=== PATIENT | female | born 1975 | race African-American/Black ===

== ENCOUNTER 2018-06-06 03:21 | Inpatient (IN) ==
[2018-06-06] MEDS ORDERED: Haloperidol Inj 5 MG/ML Ampul IM ONE ×2 (03:36→08:12)
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
[2018-06-06 04:04] LABS: Baso # (Auto) 0.1 th/mm3 (0.0-0.2); Baso % (Auto) 0.6 % (0.0-2.0); Eos # (Auto) 0.2 th/mm3 (0.0-0.4); Hematocrit 36.1 % (35.0-46.0); Hemoglobin 11.9 gm/dL (11.6-15.3); Lymph # (Auto) 2.5 th/mm3 (1.0-4.8); Lymph % (Auto) 30.3 % (9.0-44.0); Mean Corpuscular HGB Conc 32.9 % (32.0-36.0); Mean Corpuscular Hemoglobin 29.3 pg (27.0-34.0); Mean Corpuscular Volume 88.9 fL (80.0-100.0); Mean Platelet Volume 9.5 fL (7.0-11.0); Mono # (Auto) 0.8 th/mm3 (0.0-0.9); Mono % (Auto) 9.8 % (0.0-8.0); Neut # (Auto) 4.7 th/mm3 (1.8-7.7); Neut % (Auto) 57.3 % (16.0-70.0); Platelet Count 335 th/mm3 (150-450); Red Blood Count 4.06 mil/mm3 (4.00-5.30); Red Cell Distribution Width 14.7 % (11.6-17.2); White Blood Count 8.3 th/mm3 (4.0-11.0)
[2018-06-06 04:27] LABS: Alanine Aminotransferase 16 U/L (10-53); Albumin 3.8 g/dL (3.4-5.0); Anion Gap 11 meq/L (5-15); Aspartate Aminotransferase 19 U/L (15-37); Blood Urea Nitrogen 12 mg/dL (7-18); Calcium 8.3 mg/dL (8.5-10.1); Carbon Dioxide 21.7 meq/L (21.0-32.0); Chloride 110 meq/L (98-107); Glomerular Filtration Rate 63 mL/min (>89); Glucose,Random 117 mg/dL (74-106); Magnesium 1.7 mg/dL (1.5-2.5); Potassium 3.3 meq/L (3.5-5.1); Sodium 143 meq/L (136-145)
[2018-06-06 04:37] LABS: Alkaline Phosphatase 77 U/L (45-117)
[2018-06-06 05:41] LABS: Amphetamine Screen,Urine Neg (Neg); Barbiturate Screen,Urine Neg (Neg); Cannabinoid Screen,Urine Neg (Neg); Cocaine Screen,Urine Neg (Neg)
[2018-06-06 05:44] LABS: Opiate Screen,Urine Neg (Neg)
[2018-06-06] MEDS ORDERED: Bisacodyl 10 MG Supp RECTAL PRN (08:20)
[2018-06-06] MEDS ORDERED: Aluminum/Magnesium/Simethacone Susp 30 ML UDC PO PRN (08:20)
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
--- NOTE | 2018-06-06 12:52 | ECG ---
Date Performed: 06/06/2018 Time Performed: 03:45:09 PTAGE: 89 years EKG: SINUS TACHYCARDIA POSSIBLE LEFT ATRIAL ENLARGEMENT ABNORMAL RHYTHM ECG NO PREVIOUS TRACING DOCTOR: Rian Nelson Interpretating Date/Time 06/06/2018 12:50:19
[2018-06-06] MEDS: Haloperidol 5 MG Tablet PO SCH ×2 (13:15→21:01)
[2018-06-06] MEDS: Senna/Docusate Sodium 8.6/50 MG Tablet PO SCH ×2 (13:15→21:01)
[2018-06-07] MEDS: Senna/Docusate Sodium 8.6/50 MG Tablet PO SCH (08:12)
--- NOTE | 2018-06-07 10:01 | P.PNPSY ---
Subjective Remarks: Patient initially admitted by Dr. Holley's H&P reviewed and agreed with Dr. Holley is done first opinion petition supporting [place] act. I agree. Patient meets criteria for involuntary psychiatric hospitalization under the [place] act. I will cosign second opinion petition supporting [place] act. I also feel the patient does not have capacity to agree to medication or treatment thus I will also initiated healthcare surrogate and guardian advocate. Of interest patient does have a past psychiatric history here under the name "sarah winston with " she was hospitalized here 05/13/18 through 05/27/[address] Suarez. He was discharged after receiving Haldol Decanoate injection of 50 mg. At that time they also discontinued her oral Haldol. Patient seen today in the [place] on 2700 she is quite manic with rapid pressured speech she is intense intrusive and intimidating demanding saying that her weight last name now is only masses that she does not belong here that she does not need medication. That the only medicine she will take his vegetable based medicine. When I attempted to discuss the [place] act and its consequences for her she denied being under any type of [place] act walked away from me and called me and "ass hole" patient refusing to answer any further questions about past psychiatric history family history history of substance use or medical issues.. At this time she does meet Ivey criteria. I will cosign second opinion petition supporting [place] act. I will also do healthcare surrogate Guardian advocate. With the prior admission patient was placed on the [facility] hospital referral list though she appeared to resolve to the point where she was released back to the community. We need to be even more observant with her with this admission Review of Systems All other systems reviewed negative except as stated in HPI Mental Status Examination Appearance: Dirty, Disheveled Consciousness: Alert Orientation: Person Motor Activity: Abnormal gait Speech: Pressured, Rapid Language: Adequate Fund of Knowledge: Poor Attention and Concentration: Easily distracted Memory: Impaired Mood: Angry, Oppositional, Irritable, Manic Affect: Other (Increased range and intensity) Thought Process & Associations: Loose associations, Disorganized Thought Content: Bizarre thinking, Racing thoughts, Depersonalization, Delusional Hallucination Type: None Delusion Type: Bizarre, Paranoid Suicidal Ideation: No Suicidal Plan: No Suicidal Intention: No Homicidal Ideation: No Homicidal Plan: No Homicidal Intention: No Insight: Poor Judgment: Poor Assessment and Plan - Assessment (1) Schizoaffective disorder Code(s): F25.9 - Schizoaffective disorder, unspecified Status: Acute - Plan Plan: At this time patient meets Ivey criteria for involuntary hospitalization. I will cosign second opinion petition supporting Ivey act. Patient does not have capacity to sign for medication or admission or treatment thus I will ask for healthcare surrogate and guardian advocate. With past admission that was necessary to go through [place] to get a guardian advocate hopefully we can get patient into the court docket for this Justification for Continued Inpatient Stay: At this time patient with decompensated placed in a lower level of care Discharge Planning: To be determined there is a possibility that she may be hospital Request Healthcare Surrogate/Guardian Advocate?: Yes (1) Schizoaffective disorder Qualifiers: Schizoaffective disorder type: bipolar Qualified Code(s): F25.0 - Schizoaffective disorder, bipolar type
--- NOTE | 2018-06-08 10:05 | P.PNPSY ---
Subjective Remarks: Patient seen today in follow with nurse Kristy, chart reviewed, patient refusing medications. Though we also do not hear of healthcare surrogate or guardian advocate. Patient remains quite manic with rapid pressured speech she is quite grandiose paranoid. She is quite intrusive. Denying mental illness stating her last name is Onassis. Patient has also been quite hostile and intrusive with nursing and other patients on the unit. Patient had no significant complaints related to medical issues I did attempt again to speak with her related to Ivey act, her schedule hearing for tomorrow, and what it implies. She just walked away and ignored my interaction with her. Patient is scheduled for [place] tomorrow. Consideration of her past hospitalizations and her record I will reinstitute the [facility] referral packet. The counselors we will be contacting the [facility] to see if there is some way we can expedite possible referral to the [facility] Review of Systems All other systems reviewed negative except as stated in HPI Mental Status Examination Appearance: Dirty, Disheveled Consciousness: Alert Orientation: Person, Place Motor Activity: Abnormal gait Speech: Pressured, Rapid Language: Adequate Fund of Knowledge: Poor Attention and Concentration: Easily distracted Memory: Impaired Mood: Angry, Manic Affect: Other (Increased range and intensity) Thought Process & Associations: Loose associations, Disorganized Thought Content: Bizarre thinking, Depersonalization, Delusional Hallucination Type: None Delusion Type: Bizarre, Paranoid Suicidal Ideation: No Suicidal Plan: No Suicidal Intention: No Homicidal Ideation: No Homicidal Plan: No Homicidal Intention: No Insight: Poor Judgment: Poor Assessment and Plan - Plan Plan: Patient remains quite manic and psychotic with rapid pressured speech she is grandiose paranoid vigilant and intrusive patient scheduled for [place] court tomorrow Justification for Continued Inpatient Stay: At this time patient with decompensated placed in a lower level of care Discharge Planning: We will initiate referral to [facility] Request Healthcare Surrogate/Guardian Advocate?: Yes
--- NOTE | 2018-06-08 10:34 | P.TTN ---
- Patient Problems Problems: 1. Discharge planning 2. Medication compliance 3. Knowledge deficit 4. Lack of coping skills - Progress Toward Goals Provider Present: Dr. Leonides Moeller (Dr. Moeller is titrating medications, patient remains for further stabilization.) Psychiatric Counselors Present: Edilberto Duron Jr., [facility] (Counselor attempted to meet with patient to discuss discharge plan. Patient is oppositional and unwilling to maintain conversation or respond appropriately to any questions asked of the patient at this time.) Group Spec/RT/OT/BUSH Present: JOYCE Eason (Patient does not attend groups and is not redirectable at this time.) - Documentation Teaching Recipient: Patient
[2018-06-08] MEDS ORDERED: Haloperidol Inj 5 MG/ML Ampul ONE (21:12)
[2018-06-08] MEDS ORDERED: Haloperidol Inj 5 MG/ML Ampul IM ONE (21:30)
--- NOTE | 2018-06-09 12:03 | P.PNPSY ---
Subjective Remarks: Patient refused to participate in [place] hearing today. Patient's public health informatician agreed to that. Patient was retained by I[place] court charge with guardian advocate appointed. Counselor is also contacting the [facility] to see if we can expedite return to that facility since patient was on a very low number in the waiting list for transfer to that facility. Patient was seen by me on the [address] Patient is seen with nurse Alla. Patient continues quite psychotic intrusive grandiose paranoid denying mental illness denying need for medication or where she was able to process the fact that the court hearing was heard and guardian advocate was appointed. And she will be receiving medication. She did agree to take Geodon orally. With the proviso if she refuses she will have the Geodon IM in its place. Thus we will order Geodon 40 mg p.o. twice daily to be given only with permission of healthcare surrogate/guardian advocate and if she refuses to have it replaced with Geodon 10 mg IM. We will hope we can expedite a referral to [facility] Review of Systems All other systems reviewed negative except as stated in HPI Mental Status Examination Appearance: Dirty, Disheveled Consciousness: Alert Orientation: Person, Place Motor Activity: Abnormal gait Speech: Pressured, Rapid Language: Adequate Fund of Knowledge: Poor Attention and Concentration: Easily distracted Memory: Impaired Mood: Angry, Manic Affect: Other (Increased range and intensity) Thought Process & Associations: Loose associations, Disorganized Thought Content: Bizarre thinking, Depersonalization, Delusional Hallucination Type: None Delusion Type: Bizarre, Paranoid Suicidal Ideation: No Suicidal Plan: No Suicidal Intention: No Homicidal Ideation: No Homicidal Plan: No Homicidal Intention: No Insight: Poor Judgment: Poor Assessment and Plan - Assessment (1) Schizoaffective disorder Code(s): F25.9 - Schizoaffective disorder, unspecified Status: Acute - Plan Plan: Patient retained by [place] court charge with guardian advocate appointed we will start medication as mentioned above with permission of guardian advocate. State referral packet has been sent. We are attempting to expedite that process also Justification for Continued Inpatient Stay: At this time patient with decompensated placed in a lower level of care Discharge Planning: Referred to [facility] Request Healthcare Surrogate/Guardian Advocate?: Yes (1) Schizoaffective disorder Qualifiers: Schizoaffective disorder type: bipolar Qualified Code(s): F25.0 - Schizoaffective disorder, bipolar type
--- NOTE | 2018-06-10 09:11 | P.PNPSY ---
Subjective Remarks: Patient seen and [place] with floor staff, patient continues intense labile singing and dancing around the [place] patient continues to manipulate the medication saying that she has to open wound of the Geodon capsule to inspected before she will take it orally, she also stated that she would rather be on Haldol. I declined to make any changes in the medication at this time. Patient then stated she would have to take her shots. I will allow that. However I will increase the oral Geodon to 60 mg p.o. twice daily and increase the IM Geodon to 20 mg IM if patient refuses the oral scheduled dose. We will continue to work with expediting referral to the [facility] Review of Systems All other systems reviewed negative except as stated in HPI Mental Status Examination Appearance: Disheveled Consciousness: Alert Orientation: Person, Place, Situation Motor Activity: Normal gait Speech: Pressured, Rapid Language: Adequate Fund of Knowledge: Poor Attention and Concentration: Easily distracted Memory: Impaired Mood: Angry, Irritable, Manic Affect: Other (Increased range and intensity) Thought Process & Associations: Loose associations, Disorganized Thought Content: Bizarre thinking, Depersonalization, Delusional Hallucination Type: None Delusion Type: Bizarre, Paranoid Suicidal Ideation: No Suicidal Plan: No Suicidal Intention: No Homicidal Ideation: No Homicidal Plan: No Homicidal Intention: No Insight: Poor Judgment: Poor Assessment and Plan - Assessment (1) Schizoaffective disorder Code(s): F25.9 - Schizoaffective disorder, unspecified Status: Acute - Plan Plan: Patient continues quite psychotic delusional and manic, showing noncompliance with medication, leading to nursing needing to use the alternative dosing of the Geodon, IM dose replacing p.o. dose Justification for Continued Inpatient Stay: At this time patient with decompensated placed on lower level of care Discharge Planning: Continue to work with expedited transfer to the [facility] Request Healthcare Surrogate/Guardian Advocate?: Yes (1) Schizoaffective disorder Qualifiers: Schizoaffective disorder type: bipolar Qualified Code(s): F25.0 - Schizoaffective disorder, bipolar type
[2018-06-12] MEDS: Haloperidol 5 MG Tablet PO SCH ×2 (08:11→21:00)
--- NOTE | 2018-06-12 12:35 | P.PNPSY ---
Subjective Remarks: Reviewed electronic medical record and discussed with nursing staff. Rounded with MAGUE Granda. Patient in her bed with the covers over her head. She denies any depression or sadness. She is very paranoid and internally stimulated. Loose associations and tangential. She inspects her medications and needs alot of encouragement to take her medications. She is rambling about leaving and moving back with her "real ." Staff endorse that she makes comments that she " hates black people" and she is . She easily escalates if you call her name out incorrectly. Denies SI/HI. Review of Systems All other systems reviewed negative except as stated in HPI Mental Status Examination Appearance: Disheveled Consciousness: Alert Orientation: Person, Place, Situation Motor Activity: Normal gait Speech: Pressured, Rapid Language: Adequate Fund of Knowledge: Poor Attention and Concentration: Easily distracted Memory: Impaired Mood: Angry, Irritable, Manic Affect: Other (Increased range and intensity) Thought Process & Associations: Loose associations, Disorganized Thought Content: Bizarre thinking, Depersonalization, Delusional Hallucination Type: None Delusion Type: Bizarre, Paranoid Suicidal Ideation: No Suicidal Plan: No Suicidal Intention: No Homicidal Ideation: No Homicidal Plan: No Homicidal Intention: No Insight: Poor Judgment: Poor Assessment and Plan - Assessment (1) Acute psychosis Code(s): F23 - Brief psychotic disorder Status: Acute (2) Schizoaffective disorder Code(s): F25.9 - Schizoaffective disorder, unspecified Status: Acute - Plan Plan: 06/12/18 Patient continues quite psychotic delusional and manic. Needs alot of encouragement to take her medications, IM dose available if needed. Justification for Continued Inpatient Stay: Moving patient to a less restrictive environment may result in her decompensation. Request Healthcare Surrogate/Guardian Advocate?: Yes (2) Schizoaffective disorder Qualifiers: Schizoaffective disorder type: bipolar Qualified Code(s): F25.0 - Schizoaffective disorder, bipolar type
[2018-06-13] MEDS: Haloperidol 5 MG Tablet PO SCH ×2 (09:03→20:42)
--- NOTE | 2018-06-13 09:13 | P.PNPSY ---
Subjective Remarks: Patient is seen today in day room with floor staff, chart reviewed, patient compliant medication. Patient continues intrusive superficial silly somewhat childlike with no insight into her disease. Continues to deny illness though is compliant with medication. We will increase Geodon to 80 mg twice daily orally continue to work with [facility] for expedited return to that facility Review of Systems All other systems reviewed negative except as stated in HPI Mental Status Examination Appearance: Disheveled Consciousness: Alert Orientation: Person, Place, Situation Motor Activity: Normal gait Speech: Pressured, Rapid Language: Adequate Fund of Knowledge: Poor Attention and Concentration: Easily distracted Memory: Impaired Mood: Angry, Irritable, Manic Affect: Other (Increased range and intensity) Thought Process & Associations: Loose associations, Disorganized Thought Content: Bizarre thinking, Depersonalization, Delusional Hallucination Type: None Delusion Type: Bizarre, Paranoid Suicidal Ideation: No Suicidal Plan: No Suicidal Intention: No Homicidal Ideation: No Homicidal Plan: No Homicidal Intention: No Insight: Poor Judgment: Poor Assessment and Plan - Assessment (1) Schizoaffective disorder Code(s): F25.9 - Schizoaffective disorder, unspecified Status: Acute - Plan Plan: Patient remains quite psychotic paranoid and delusional. No insight into her disease. See medication adjustment above Justification for Continued Inpatient Stay: At this time patient with decompensated placed in a lower level of care Discharge Planning: Continue to work with [facility] for expedited admission to this facility Request Healthcare Surrogate/Guardian Advocate?: Yes (1) Schizoaffective disorder Qualifiers: Schizoaffective disorder type: bipolar Qualified Code(s): F25.0 - Schizoaffective disorder, bipolar type
[2018-06-14] MEDS: Haloperidol 5 MG Tablet PO SCH (08:35)
[2018-06-14] MEDS ORDERED: Haloperidol Decanoate Inj 50 MG/ML Ampul IM ONE ×2 (09:54→12:00)
--- NOTE | 2018-06-14 09:59 | P.PNPSY ---
Subjective Remarks: Patient seen in the [place] with nurse Kristy, chart reviewed, patient trying mixed complaints medication, compliant with the Haldol but assuring marked delusional ideation related to the capsules of Geodon. Patient feels the capsule itself was poisoned. She continues intense superficial silly somewhat elevated and intrusive. Discussing this with the staff staff states that patient is done well in the past only on Haldol and Haldol decanoate without the need for Geodon. We will wean patient off Geodon increase Depakote to 10 mg twice daily and add Haldol decanoate Review of Systems All other systems reviewed negative except as stated in HPI Mental Status Examination Appearance: Appropriate Consciousness: Alert Orientation: Person, Place, Situation Motor Activity: Normal gait Speech: Pressured, Rapid Language: Adequate Fund of Knowledge: Poor Attention and Concentration: Easily distracted Memory: Impaired Mood: Angry, Irritable, Manic Affect: Other (Increased range and intensity) Thought Process & Associations: Loose associations, Disorganized Thought Content: Bizarre thinking, Depersonalization, Delusional Hallucination Type: None Delusion Type: Bizarre, Paranoid Suicidal Ideation: No Suicidal Plan: No Suicidal Intention: No Homicidal Ideation: No Homicidal Plan: No Homicidal Intention: No Insight: Poor Judgment: Poor Assessment and Plan - Assessment (1) Schizoaffective disorder Code(s): F25.9 - Schizoaffective disorder, unspecified Status: Acute - Plan Plan: Patient continues psychotic and delusional, though showing some increased compliance overall with medication see medication adjustments above Justification for Continued Inpatient Stay: At this time patient with decompensated placed on a lower level of care Discharge Planning: To be determined Request Healthcare Surrogate/Guardian Advocate?: Yes (1) Schizoaffective disorder Qualifiers: Schizoaffective disorder type: bipolar Qualified Code(s): F25.0 - Schizoaffective disorder, bipolar type
--- NOTE | 2018-06-15 12:39 | P.PNPSY ---
Subjective Remarks: Patient seen and [place] with nurse Kristy, chart reviewed, patient compliant medication. Patient did accept the Haldol Decanoate injection yesterday without difficulty. Patient continues superficial silly somewhat intrusive and intense. Today saying she wants to be discharged so she can go with her . Patient is not . Patient no behavioral problems at the present time. Continue to await word from [facility] Review of Systems All other systems reviewed negative except as stated in HPI Mental Status Examination Appearance: Appropriate Consciousness: Alert Orientation: Person, Place, Situation Motor Activity: Normal gait Speech: Pressured, Rapid Language: Adequate Fund of Knowledge: Poor Attention and Concentration: Easily distracted Memory: Impaired Mood: Angry (Calmer), Irritable (Calm), Manic (Calm her) Affect: Other (Increased range and intensity) Thought Process & Associations: Loose associations, Disorganized Thought Content: Bizarre thinking, Depersonalization, Delusional Hallucination Type: None Delusion Type: Bizarre, Paranoid Suicidal Ideation: No Suicidal Plan: No Suicidal Intention: No Homicidal Ideation: No Homicidal Plan: No Homicidal Intention: No Insight: Poor Judgment: Poor Assessment and Plan - Assessment (1) Schizoaffective disorder Code(s): F25.9 - Schizoaffective disorder, unspecified Status: Acute - Plan Plan: Patient continues psychotic delusional paranoid and intrusive though somewhat calmer, continues compliant medication. Continue to await word from state hospital referral Justification for Continued Inpatient Stay: At this time patient with decompensated placed in a lower level of care Discharge Planning: Continue to await word from state hospital referral Request Healthcare Surrogate/Guardian Advocate?: Yes (1) Schizoaffective disorder Qualifiers: Schizoaffective disorder type: bipolar Qualified Code(s): F25.0 - Schizoaffective disorder, bipolar type
--- NOTE | 2018-06-16 09:45 | P.PNPSY ---
Subjective Remarks: Patient seen and [place] with floor staff, chart reviewed, patient compliant medication. Patient continues somewhat intrusive superficial and silly however is noted the patient claiming to be allergic to Benadryl. She inadvertently did have an Benadryl 25 mg IM. She showed no untoward effects of that at this time will discontinue all Benadryl at this time. We continue to await word from [facility] and I request for expedited processing of her Review of Systems All other systems reviewed negative except as stated in HPI Mental Status Examination Appearance: Appropriate Consciousness: Alert Orientation: Person, Place, Situation Motor Activity: Normal gait Speech: Pressured, Rapid Language: Adequate Fund of Knowledge: Poor Attention and Concentration: Easily distracted Memory: Impaired Mood: Angry (Calmer), Irritable (Calm), Manic (Calm her) Affect: Other (Increased range and intensity) Thought Process & Associations: Loose associations, Disorganized Thought Content: Bizarre thinking, Depersonalization, Delusional Hallucination Type: None Delusion Type: Bizarre, Paranoid Suicidal Ideation: No Suicidal Plan: No Suicidal Intention: No Homicidal Ideation: No Homicidal Plan: No Homicidal Intention: No Insight: Poor Judgment: Poor Assessment and Plan - Assessment (1) Schizoaffective disorder Code(s): F25.9 - Schizoaffective disorder, unspecified Status: Acute - Plan Plan: Patient remains somewhat psychotic grandiose and paranoid. Compliant medications. See medication adjustment above Justification for Continued Inpatient Stay: At this time patient with decompensated placed on a lower level of care Discharge Planning: To be determined continue to await word from [facility] referral Request Healthcare Surrogate/Guardian Advocate?: Yes (1) Schizoaffective disorder Qualifiers: Schizoaffective disorder type: bipolar Qualified Code(s): F25.0 - Schizoaffective disorder, bipolar type
[2018-06-17 06:12] VITALS: RESP 17
--- NOTE | 2018-06-17 11:35 | P.PNPSY ---
Subjective Remarks: Patient seen and [place] with floor staff, she remains within elevated mood and tense superficial silly and somewhat childlike. She is also intrusive. Though compliant medication. She is also grandiose and somewhat delusional with this. It appears to be fair word from the [facility] bed date might be available on 06/21 Review of Systems All other systems reviewed negative except as stated in HPI Mental Status Examination Appearance: Appropriate Consciousness: Alert Orientation: Person, Place, Situation Motor Activity: Normal gait Speech: Pressured, Rapid Language: Adequate Fund of Knowledge: Poor Attention and Concentration: Easily distracted Memory: Impaired Mood: Angry (Calmer), Irritable (Calm), Manic (Calm her) Affect: Other (Increased range and intensity) Thought Process & Associations: Loose associations, Disorganized Thought Content: Bizarre thinking, Depersonalization, Delusional Hallucination Type: None Delusion Type: Bizarre, Paranoid Suicidal Ideation: No Suicidal Plan: No Suicidal Intention: No Homicidal Ideation: No Homicidal Plan: No Homicidal Intention: No Insight: Poor Judgment: Poor Assessment and Plan - Assessment (1) Schizoaffective disorder Code(s): F25.9 - Schizoaffective disorder, unspecified Status: Acute - Plan Plan: Patient remained psychotic paranoid delusional intrusive and intense. Compliant medication. There is a bed date available but appears on 06/[address] [facility] Justification for Continued Inpatient Stay: At this time patient with decompensated placed in a lower level of care Discharge Planning: Transferred to [facility] planned for 06/21 Request Healthcare Surrogate/Guardian Advocate?: Yes (1) Schizoaffective disorder Qualifiers: Schizoaffective disorder type: bipolar Qualified Code(s): F25.0 - Schizoaffective disorder, bipolar type
--- NOTE | 2018-06-18 13:44 | P.PNPSY ---
Subjective Chief Complaint: Follow-up treatment of psychosis Remarks: Patient seen for follow-up, chart reviewed, patient discussed with nursing staff ; we reviewed the patient's mood, thoughts, and behaviors from overnight and this morning. Nurse reports the patient slept approximately 7 hours overnight. She is described as calm cooperative and seemed excited about her transfer to 2600 last evening. Patient was seen at bedside where she would return for a nap after breakfast. She reports "I think my medicines are working good". She had no further comments or complaints. Mental Status Examination Appearance: Appropriate Consciousness: Alert Orientation: Person, Place, Situation Motor Activity: Normal gait Speech: Unremarkable Language: Adequate Fund of Knowledge: Poor Attention and Concentration: Easily distracted Memory: Impaired Mood: Irritable (Calm) Affect: Other (Increased range and intensity) Thought Process & Associations: Loose associations, Disorganized Thought Content: Bizarre thinking, Depersonalization, Delusional Hallucination Type: None Delusion Type: Bizarre, Paranoid Suicidal Ideation: No Suicidal Plan: No Suicidal Intention: No Homicidal Ideation: No Homicidal Plan: No Homicidal Intention: No Insight: Poor Judgment: Poor Assessment and Plan - Assessment (1) Schizoaffective disorder Code(s): F25.9 - Schizoaffective disorder, unspecified Status: Acute - Plan Plan: June 17, 2018: Patient remained psychotic paranoid delusional intrusive and intense. Compliant medication. There is a bed date available [facility]: Good response to treatment as the patient's behavior has been appropriate and she is tolerating her current medications. The patient remains a substantially high risk for relapse of her psychosis and amira due to a pattern of not adherence therefore she will require continued hospitalization and referral [facility]. Continue current medications unchanged. Justification for Continued Inpatient Stay: Patient remains an elevated risk for self-harm by self neglect and a risk of harm to others by acting out on her paranoia and will require further inpatient stabilization and preparation of a safe discharge plan. Moving patient to a less restrictive environment at this time may result in decompensation. Request Healthcare Surrogate/Guardian Advocate?: Yes (1) Schizoaffective disorder Qualifiers: Schizoaffective disorder type: bipolar Qualified Code(s): F25.0 - Schizoaffective disorder, bipolar type
--- NOTE | 2018-06-19 14:28 | P.PNPSY ---
Subjective Chief Complaint: Follow-up treatment of psychosis Remarks: Patient seen for follow-up, chart reviewed, patient discussed with nursing staff ; we reviewed the patient's mood, thoughts, and behaviors from overnight and this morning. Nurse reports the patient slept 8 hours overnight. Nursing describes her is calm cooperative and denying suicidal or homicidal ideations. Patient was seen sitting in bed coming to herself after breakfast. She had no complaints and reports satisfaction with her current medications. Mental Status Examination Appearance: Appropriate Consciousness: Alert Orientation: Person, Place, Situation Motor Activity: Normal gait Speech: Unremarkable Language: Adequate Fund of Knowledge: Poor Attention and Concentration: Easily distracted Memory: Impaired Mood: Good Affect: Other (Increased range and intensity) Thought Process & Associations: Loose associations, Disorganized Thought Content: Appropriate Hallucination Type: None Delusion Type: None Suicidal Ideation: No Suicidal Plan: No Suicidal Intention: No Homicidal Ideation: No Homicidal Plan: No Homicidal Intention: No Insight: Poor Judgment: Poor Assessment and Plan - Assessment (1) Schizoaffective disorder Code(s): F25.9 - Schizoaffective disorder, unspecified Status: Acute - Plan Plan: June 19, 2018: Good response to treatment as the patient's behavior has been appropriate and she is tolerating her current medications. The patient remains a substantially high risk for relapse of her psychosis and amira due to a pattern of not adherence therefore she will require continued hospitalization and referral for long-term treatment through the [facility]. Continue current medications unchanged. Justification for Continued Inpatient Stay: Patient remains an elevated risk for self-harm by self neglect and risk of harm to others by acting out on her paranoia and will require further inpatient stabilization and preparation of a safe discharge plan. Moving patient to a less restrictive environment at this time may result in decompensation. Request Healthcare Surrogate/Guardian Advocate?: Yes (1) Schizoaffective disorder Qualifiers: Schizoaffective disorder type: bipolar Qualified Code(s): F25.0 - Schizoaffective disorder, bipolar type
[2018-06-19 17:48] VITALS: BP 133/60; PULSE 73; TEMP 97.4; O2SAT 99
--- NOTE | 2018-06-20 10:27 | P.TTN ---
- Patient Problems Problems: 1. Discharge planning 2. Medication compliance 3. Knowledge deficit 4. Lack of coping skills - Progress Toward Goals Provider Present: Dr. Leonides Moeller (Patient meets criteria, patient is awaiting state hospitalization.), Dr. Ngozi Lawrence Psychiatric Counselors Present: dEilberto Duron Jr., [facility] (Patient will be discharged tomorrow June 21, 2018 to the [facility] for long-term stabilization.) Group Spec/RT/OT/BUSH Present: JOYCE Eason (Patient does not attend groups and is not redirectable at this time.), RACHELLE Cam ( Patient attends groups and is redirectable at this time.) - Documentation Teaching Recipient: Patient
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
[2018-06-20] MEDS ORDERED: Haloperidol Inj 5 MG/ML Ampul IM ONE (21:00)
[2018-06-21] MEDS: LORazepam 1 MG Tablet PO ONE ×2 (07:34→07:40)
== END 2018-06-21 08:20 | DRG 885 ==
LOC: NEPE 03:21 → EDBD 08:25 → NEDA 08:25 → H270 10:26 → H260 06-17 21:41 → H270 06-20 21:03
PROVIDERS: ADMIT Psychiatry & Neurology Psychiatry; ATTEND Psychiatry & Neurology Psychiatry
CPT/HCPCS: 80053; 80307; 83735; 84443; 84703; 85025; 90772; 90774; 90775; 90782; 90784; 93005; 96372; 96374; 96375; 99285; C8952; C9204; J1200; J1630; J1631; J2060; J3486; P9612; Q0163